=== PATIENT | female | born 1930 | race Caucasian/White ===

== ENCOUNTER 2017-12-12 12:25 | Emergency (ER) | payer MEDICAID ==
[~2017-12-12] VITALS: Ht 160 cm; Wt 66.0 kg
[2017-12-12 12:50] VITALS: BP 175/63
[2017-12-12] MEDS ORDERED: BENA20TA3 PO (12:56)
[2017-12-12] MEDS ORDERED: HYDR12.529 PO (12:56)
[2017-12-12] MEDS ORDERED: CLON-457 MT (12:56)
[2017-12-12 13:23] LABS: CLARITY URINE CLEAR (CLEAR); COLOR URINE YELLOW (YELLOW); KETONES URINE NEGATIVE (NEGATIVE); LEUKOCYTE ESTERASE URINE 2+ (NEGATIVE); NITRITE URINE NEGATIVE (NEGATIVE); OCCULT BLOOD URINE TRACE (NEGATIVE); PH URINE 5.5 (4.5-8.0); PROTEIN URINE NEGATIVE (NEGATIVE); UROBILINOGEN URINE 0.2 E.U./dL (0.2-1.0)
== END 2017-12-12 14:30 | disposition left against medical advice (07) ==
LOC: ER 12:25
DX: M54.5 Low back pain (principal)
CPT/HCPCS: 81003; 87077; 87086; 87186; 99284